=== PATIENT | female | born 1970 | race Caucasian/White ===

== ENCOUNTER 2016-11-07 19:17 | Emergency (ER) | payer OTHER ==
[~2016-11-07] VITALS: Ht 162.6 cm; Wt 83.1 kg
[~2016-11-07 19:17] MED LIST: AMOX875T PO; FLUT1SPR9 EACH NARE; NAPR550 PO
[2016-11-07 19:48] VITALS: BP 125/83; PULSE 93; RESP 18; TEMP 98.2; O2SAT 100
--- NOTE | 2016-11-07 19:59 | PD ---
HPI . left arm lesions/possible insect bite Chief Complaint: Skin Problem Time Seen by Provider: 19:59 Travel History International Travel<30 days: No Contact w/Intl Traveler<30days: No Traveled to known affect area: No History of Present Illness HPI 46-year-old female here with complaints of lesions to her left arm. She tells me they have been there for the past day. 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 She denies any fever or chills. She does report that the area is hot to touch. PFSH Past Medical History ADD: Yes Anxiety: Yes Diminished Hearing: No ?: Not LMP: 6- 22 17 : 3 Para: 3 Social History Alcohol Use: Yes (SOCIAL) Tobacco Use: No Substance Use: No Allergies-Medications (Allergen,Severity, Reaction): Coded Allergies: No Known Allergies (Verified , 11/07/16) Reported Meds & Prescriptions Reported Meds & Active Scripts Active Bactrim DS (Sulfamethoxazole-Trimethoprim) 800-160 Mg Tab 1 Tab PO BID Review of Systems General / Constitutional: No: Fever Eyes: No: Visual changes HENT: No: Headaches Cardiovascular: No: Chest Pain or Discomfort Respiratory: No: Shortness of Breath Gastrointestinal: No: Abdominal Pain Genitourinary: No: Dysuria Musculoskeletal: No: Pain Skin: Positive Lesions (left arm), No Rash Neurologic: No: Weakness Psychiatric: No: Depression Endocrine: No: Polydipsia Hematologic/Lymphatic: No: Easy Bruising Physical Exam Narrative GENERAL: AAO x 3, no acute distress, Well-nourished, well-developed patient. SKIN: Warm and dry. 4 lesions on left arm, small excoriation with surrounding erythema, warm to touch. very localized. no streaking, purulence or fluctuance HEAD: Normocephalic and atraumatic. EYES: No scleral icterus. No injection or drainage. ENT: No nasal drainage noted. Mucous membranes pink. Airway patent. NECK: Supple, trachea midline. No JVD. CARDIOVASCULAR: Regular rate and rhythm without murmurs, gallops, or rubs. RESPIRATORY: Breath sounds equal bilaterally. No accessory muscle use. No rhonchi or rales. GASTROINTESTINAL: visual inspection normal EXTREMITIES: No cyanosis or edema. BACK: No obvious deformity. NEURO: CN II-12 intact, PSYCH: AAO x 3, normal affect. Data Data Last Documented VS Vital Signs Date Time Temp Pulse Resp B/P Pulse Ox O2 Delivery O2 Flow Rate FiO2 11/07/16 19:48 98.2 93 18 125/83 100 MDM Medical Decision Making Medical Screen Exam Complete: Yes Emergency Medical Condition: Yes Medical Record Reviewed: Yes Differential Diagnosis insect bite, superficial cellulitis, less likely shingles Narrative Course 46 yr old female here with what appears to be insect bites. There does seem to be some infection involved with these bites. I will go ahead and treat with bactrim. I recommend topical benadryl. I have discussed with her. Patient verbalized understanding of instructions, questions were answered, and thanked me for their care. I advised them if their condition worsens, please return to the nearest emergency room for further care. Diagnosis Primary Impression: Left arm cellulitis Additional Impression: Insect bite Qualified Code: W57.XXXA - Insect bite, initial encounter Patient Instructions: General Instructions Additional Instructions: [place] for worsening signs of infection which include fever, increased redness , increased warmth, purulent drainage, increased swelling or streaking. If any of these develop, please go to the nearest emergency room. Please return to emergency department if your symptoms return or worsen. Follow up with your primary care provider. Take medications as prescribed. You can also use topical Benadryl as directed on the package insert. Med/Other Pt SpecificInfo: Prescription(s) given Scripts Sulfamethoxazole-Trimethoprim (Bactrim DS)800-160 Mg Tab1 Tab PO BID #20 TAB Prov:LainezNatasha nogueira 11/07/16 Disposition: 01 DISCHARGE HOME Condition: Stable Keyana Rowland Nov 07, 2016 19:59
[2016-11-07] MEDS ORDERED: BACT800T5 PO (20:06)
== END 2016-11-07 20:24 | disposition home or self-care (01) ==
LOC: PHEFT 19:17
DX: L03.114 Cellulitis of left upper limb (principal); W57.XXXA Bitten or stung by nonvenomous insect and other nonvenomous arthropods, initial encounter; Y93.9 Activity, unspecified; Y92.9 Unspecified place or not applicable
CPT/HCPCS: 99283

== ENCOUNTER 2017-05-29 12:16 | Emergency (ER) | payer OTHER ==
[~2017-05-29] VITALS: Ht 162.6 cm; Wt 85.8 kg
[~2017-05-29 12:16] MED LIST changes: -AMOX875T PO; +BACT800T5 PO; -FLUT1SPR9 EACH NARE; -NAPR550 PO
[2017-05-29 12:18] VITALS: BP 147/81; PULSE 83; RESP 16; TEMP 97.9; O2SAT 98
[2017-05-29 12:45] VITALS: O2SAT 98
[2017-05-29] MEDS ORDERED: ADDE30TA PO (12:45)
--- NOTE | 2017-05-29 12:46 | PD ---
HPI Chief Complaint: Chest Pain Time Seen by Provider: 12:34 Travel History International Travel<30 days: No Contact w/Intl Traveler<30days: No Traveled to known affect area: No History of Present Illness HPI 47-year-old female complains of chest pain. Patient states that the chest pain started about an hour prior to arrival. Patient states the pain is substernal pressure without radiation. Patient denies palpitation nausea apheresis. Patient denies any coughing congestion fever chills. Patient denies history hypertension, diabetes, hyperlipidemia. Patient is a nonsmoker. Patient has family history of heart disease. Patient states that she has intermittent indigestion feeling in the past. Patient states that she drank an energy drink this morning. Patient denies any alcohol or drug abuse. Patient states that the chest pain lasted about 45 minutes and resolved completely. Patient denies any chest pain now. PFSH Past Medical History Hx Anticoagulant Therapy: No ADD: Yes Anxiety: Yes Diabetes: No Diminished Hearing: No ?: Not : 3 Para: 3 Social History Alcohol Use: Yes (SOCIAL) Tobacco Use: No Substance Use: No Allergies-Medications (Allergen,Severity, Reaction): Coded Allergies: No Known Allergies (Verified Adverse Reaction, Unknown, 05/29/17) Reported Meds & Prescriptions Reported Meds & Active Scripts Active Reported Adderall (Amphetamine-Dextroamphetamine) 30 Mg Tab 30 Mg PO BID Avoid late evening doses. Space doses at least 4 to 6 hours if more than once/day dosing. Review of Systems General / Constitutional: No: Fever Eyes: No: Visual changes HENT: No: Headaches Cardiovascular: Positive: Chest Pain or Discomfort Respiratory: No: Shortness of Breath Gastrointestinal: No: Abdominal Pain Genitourinary: No: Dysuria Musculoskeletal: No: Pain Skin: No Rash Neurologic: No: Weakness Psychiatric: No: Depression Endocrine: No: Polydipsia Hematologic/Lymphatic: No: Easy Bruising Physical Exam Narrative GENERAL: Well-nourished, well-developed patient. SKIN: Focused skin assessment warm/dry. HEAD: Normocephalic. EYES: No scleral icterus. No injection or drainage. NECK: Supple, trachea midline. No JVD or lymphadenopathy. CARDIOVASCULAR: Regular rate and rhythm without murmurs, gallops, or rubs. RESPIRATORY: Breath sounds equal bilaterally. No accessory muscle use. GASTROINTESTINAL: Abdomen soft, non-tender, nondistended. MUSCULOSKELETAL: No cyanosis, or edema. BACK: Nontender without obvious deformity. No CVA tenderness. Neurologic exam normal. Data Data Last Documented VS Vital Signs Date Time Temp Pulse Resp B/P (MAP) Pulse Ox O2 Delivery O2 Flow Rate FiO2 05/29/17 13:13 73 20 115/70 (85) 94 05/29/17 12:45 Room Air 05/29/17 12:18 97.9 Orders Orders Complete Blood Count With Diff (05/29/17 12:42) Comprehensive Metabolic Panel (05/29/17 12:42) Creatine Kinase (Cpk) (05/29/17 12:42) Troponin I (05/29/17 12:42) Prothrombin Time / Inr (Pt) (05/29/17 12:42) Act Partial Throm Time (Ptt) (05/29/17 12:42) Chest, Single Ap (05/29/17 12:42) Iv Access Insert/Monitor (05/29/17 12:42) Ecg Monitoring (05/29/17 12:42) Oximetry (05/29/17 12:42) Aspirin (Aspirin) (05/29/17 13:00) Labs Laboratory Tests Test 05/29/17 13:05 White Blood Count 6.9 TH/MM3 Red Blood Count 4.65 MIL/MM3 Hemoglobin 13.7 GM/DL Hematocrit 40.5 % Mean Corpuscular Volume 87.2 FL Mean Corpuscular Hemoglobin 29.5 PG Mean Corpuscular Hemoglobin Concent 33.8 % Red Cell Distribution Width 11.7 % Platelet Count 223 TH/MM3 Mean Platelet Volume 7.9 FL Neutrophils (%) (Auto) 66.2 % Lymphocytes (%) (Auto) 23.6 % Monocytes (%) (Auto) 7.5 % Eosinophils (%) (Auto) 1.9 % Basophils (%) (Auto) 0.8 % Neutrophils # (Auto) 4.6 TH/MM3 Lymphocytes # (Auto) 1.6 TH/MM3 Monocytes # (Auto) 0.5 TH/MM3 Eosinophils # (Auto) 0.1 TH/MM3 Basophils # (Auto) 0.1 TH/MM3 CBC Comment DIFF FINAL Differential Comment Prothrombin Time 10.7 SEC Prothromb Time International Ratio 1.1 RATIO Activated Partial Thromboplast Time 26.8 SEC Blood Urea Nitrogen 8 MG/DL Creatinine 0.74 MG/DL Random Glucose 92 MG/DL Total Protein 7.1 GM/DL Albumin 3.8 GM/DL Calcium Level 8.2 MG/DL Alkaline Phosphatase 71 U/L Aspartate Amino Transf (AST/SGOT) 23 U/L Alanine Aminotransferase (ALT/SGPT) 27 U/L Total Bilirubin 0.9 MG/DL Sodium Level 137 MEQ/L Potassium Level 3.8 MEQ/L Chloride Level 106 MEQ/L Carbon Dioxide Level 25.1 MEQ/L Anion Gap 6 MEQ/L Estimat Glomerular Filtration Rate 84 ML/MIN Total Creatine Kinase 110 U/L Troponin I LESS THAN 0.02 NG/ML MDM Medical Decision Making Medical Screen Exam Complete: Yes Emergency Medical Condition: Yes Interpretation(s) Last Impressions Chest X-Ray 05/29/17 1242 Signed Impressions: Service Date/Time: Monday, May 29, 2017 12:51 - CONCLUSION: No acute cardiopulmonary abnormality is identified. Jose De Jesus Chatterjee MD 1352 PM. EKG shows sinus rhythm nonspecific ST-T wave change. T-wave inversion in 3 and aVF. CBC within normal limit. CMP within normal limit. Cardiac enzymes are normal. Differential Diagnosis Differential diagnosis including angina, IA, PE, pneumothorax, GI symptoms. Narrative Course 47-year-old female with substernal chest pain. Aspirin 325 mg by mouth given. Patient was advised to be admitted to the chest pain center for workup of chest pain. Patient refuses admission. Patient wants to go home and follow with her physician. Diagnosis Primary Impression: Chest pain Qualified Codes: R07.9 - Chest pain, unspecified Patient Instructions: General Instructions Additional Instructions: Aspirin daily. 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 Return immediately if increasing chest pain or shortness of breath. Med/Other Pt SpecificInfo: No Meds Exist/No RX given Disposition: DISCHARGE HOME Condition: Stable Andreas Goodwin MD May 29, 2017 12:46
--- NOTE | 2017-05-29 12:58 | RADRPT ---
EXAM DATE/TIME: 05/29/2017 12:51 [facility] COMPARISON: No previous studies available for comparison. INDICATIONS : Chest pain. MEDICAL HISTORY : None. SURGICAL HISTORY : None. ENCOUNTER: Initial ACUITY: 1 day PAIN SCORE: 05/06 LOCATION: Bilateral chest FINDINGS: Portable AP view of the chest demonstrates a normal-sized cardiac silhouette. The lungs demonstrate n o definite effusion, consolidation, or pneumothorax. The bones and soft tissues demonstrate no acute finding. CONCLUSION: No acute cardiopulmonary abnormality is identified. Jose De Jesus Chatterjee MD on May 29, 2017 at 12:55 Board Certified Radiologist. This report was verified electronically.
[2017-05-29] MEDS ORDERED: ASPIRIN 325 MG TAB PO ONE (13:00)
[2017-05-29 13:13] VITALS: BP 115/70; PULSE 73; RESP 20; O2SAT 94
[2017-05-29 13:15] LABS: AUTOMATED NEUTROPHIL # 4.6 TH/MM3 (1.8-7.7); BASOPHIL # 0.1 TH/MM3 (0-0.2); BASOPHIL % 0.8 % (0.0-2.0); EOSINOPHIL # 0.1 TH/MM3 (0-0.4); EOSINOPHIL % 1.9 % (0.0-4.0); HEMATOCRIT 40.5 % (35.0-46.0); HEMOGLOBIN 13.7 GM/DL (11.6-15.3); LYMPH % 23.6 % (9.0-44.0); LYMPHOCYTE # 1.6 TH/MM3 (1.0-4.8); MEAN CELL VOLUME 87.2 FL (80.0-100.0); MEAN CORPUSCULAR HEMOGLOBIN 29.5 PG (27.0-34.0); MEAN CORPUSCULAR HGB CONC 33.8 % (32.0-36.0); MEAN PLATELET VOLUME 7.9 FL (7.0-11.0); MONO % 7.5 % (0.0-8.0); MONOCYTE # 0.5 TH/MM3 (0-0.9); NEUT % 66.2 % (16.0-70.0); PLATELET COUNT 223 TH/MM3 (150-450); RED BLOOD COUNT 4.65 MIL/MM3 (4.00-5.30); RED CELL DISTRIBUTION WIDTH 11.7 % (11.6-17.2); WHITE BLOOD COUNT 6.9 TH/MM3 (4.0-11.0)
[2017-05-29 13:24] LABS: CHLORIDE 106 MEQ/L (98-107); SODIUM (NA) 137 MEQ/L (136-145)
[2017-05-29 13:28] LABS: ALBUMIN 3.8 GM/DL (3.4-5.0); BICARBONATE 25.1 MEQ/L (21.0-32.0); BLOOD UREA NITROGEN 8 MG/DL (7-18); CALCIUM 8.2 MG/DL (8.5-10.1); GLUCOSE,RANDOM 92 MG/DL (74-106); INTERNATIONAL NORMALIZED RATIO 1.1 RATIO; PROTHROMBIN TIME - PATIENT 10.7 SEC (9.8-11.6)
[2017-05-29 13:31] LABS: ALT (GPT) 27 U/L (10-53); AST (GOT) 23 U/L (15-37); CREATININE 0.74 MG/DL (0.50-1.00); GLOMERULAR FILTRATION RATE 84 ML/MIN (>89)
[2017-05-29 13:33] LABS: TOTAL BILIRUBIN ADULT 0.9 MG/DL (0.2-1.0); TOTAL PROTEIN 7.1 GM/DL (6.4-8.2)
[2017-05-29 13:34] LABS: ALKALINE PHOSPHATASE 71 U/L (45-117)
[2017-05-29 13:36] LABS: TROPONIN I LESS THAN 0.02 NG/ML (0.02-0.05)
[2017-05-29 14:12] VITALS: BP 124/71; PULSE 86; RESP 16; O2SAT 95
--- NOTE | 2017-05-30 14:33 | EKG ---
Date Performed: 05/29/2017 Time Performed: 12:28:32 PTAGE: 47 years EKG: Sinus arrhythmia LOW QRS VOLTAGE IN PRECORDIAL LEADS MINIMAL VOLTAGE CRITERIA FOR LVH, CONS IDER NORMAL VARIANT. BORDERLINE ECG NO PREVIOUS TRACING DOCTOR: Angel Candelario Interpretating Date/Time 05/30/2017 14:33:00
== END 2017-05-29 14:31 | disposition home or self-care (01) ==
LOC: PHED 12:16
DX: R07.9 Chest pain, unspecified (principal)
CPT/HCPCS: 71045; 80053; 82550; 84484; 85025; 85610; 85730; 93005; 99285